=== PATIENT | female | born 1955 | race Hispanic/Latino ===

== ENCOUNTER → 2023-12-30 | Outpatient (CLI) | payer OTHER ==
[~2023-12-30] MED LIST: ASPI-556 PO; FURO20TA6 PO; IOHEXOL 350 MG/ML 100ML INFUS..BTL IV ONE; TRAM50TA4 PO
== END | disposition home or self-care (01) ==
LOC: RAH 13:31
PROVIDERS: ATTEND Internal Medicine Cardiovascular Disease
DX: R01.1 Cardiac murmur, unspecified (principal); I42.9 Cardiomyopathy, unspecified; R07.89 Other chest pain
CPT/HCPCS: 75574; Q9967

== ENCOUNTER → 2024-03-03 | Outpatient (CLI) | payer OTHER ==
[~2024-03-03] MED LIST changes: -IOHEXOL 350 MG/ML 100ML INFUS..BTL IV ONE
== END | disposition home or self-care (01) ==
LOC: SHCH 12:36
PROVIDERS: ATTEND Internal Medicine Cardiovascular Disease
DX: I10 Essential (primary) hypertension (principal)
CPT/HCPCS: 93306

== ENCOUNTER 2024-03-27 08:14 | Day surgery (SDC) | payer OTHER ==
[2024-03-23 11:43] LABS: BASOPHILS # (AUTO) 0.04 K/uL (0.00-0.20); BASOPHILS % (AUTO) 0.7 % (0.0-5.0); EOSINOPHILS # (AUTO) 0.12 K/uL (0.00-0.70); EOSINOPHILS % (AUTO) 2.2 % (0.0-8.0); HEMATOCRIT 35.6 % (36-48); IMMATURE GRANULOCYTE ABSOLUTE 0.01 K/uL (0-1); LYMPHOCYTES % (AUTO) 36.8 % (21.0-51.0); MEAN CORPUSCULAR HEMOGLOBIN 31.3 pg (27.0-33.0); MEAN CORPUSCULAR HGB CONC 33.1 g/dL (32.0-36.0); MEAN CORPUSCULAR VOLUME 94.4 fL (79-99); MONOCYTES # (AUTO) 0.4 K/uL (0.1-1.0); NEUTROPHILS # (AUTO) 2.8 K/uL (1.8-7.7); NEUTROPHILS % (AUTO) 52.1 % (40.0-77.0); PLATELET COUNT (AUTO) 151 K/uL (130-400); RED BLOOD CELL COUNT(AUTO) 3.77 MIL/uL (4.00-5.50); RED CELL DISTRIBUTION WIDTH 13.4 % (11.0-15.5); WHITE BLOOD COUNT (AUTO) 5.4 K/uL (4.8-10.8)
[2024-03-23 11:48] LABS: CREATININE 1.1 mg/dL (0.5-1.0); POTASSIUM 4.1 mmol/L (3.5-5.1)
[2024-03-23 12:33] VITALS: BP 103/52; PULSE 68; RESP 17; TEMP 97.4
[2024-03-27] VITALS (19 sets, daily range): BP systolic 98–157; BP diastolic 50–87; PULSE 59–68; RESP 14–22; TEMP 97.6–97.9
[~2024-03-27] VITALS: Ht 149.9 cm; Wt 57.7 kg
[~2024-03-27 08:14] MED LIST changes: +ESOM40CA66 PO; +HYDR200T75 PO; +ISOS30TA92 PO; +LOSA50TA64 PO; -TRAM50TA4 PO
[2024-03-27] MEDS: 0.9%NACL 1000ML 1,000 ML IV SCH (08:43)
[2024-03-27] MEDS: LIDOCAINE HCL 2% VISCOUS 15 ML UDCUP PO ONE (09:31)
[2024-03-27] MEDS: FENTanyl CITRate PF 50 MCG/1 ML 2ML VIAL IVP ONE (11:05)
[2024-03-27] MEDS: MIDAZOLAM HCL 1 MG/ML 2ML VIAL IVP ONE (11:06)
== END 2024-03-27 12:17 | disposition home or self-care (01) ==
LOC: DAH 08:14
PROVIDERS: ATTEND Internal Medicine Cardiovascular Disease
DX: I34.0 Nonrheumatic mitral (valve) insufficiency (principal); I35.0 Nonrheumatic aortic (valve) stenosis; I34.2 Nonrheumatic mitral (valve) stenosis; I12.9 Hypertensive chronic kidney disease with stage 1 through stage 4 chronic kidney disease, or unspecified chronic kidney disease; N18.30 Chronic kidney disease, stage 3 unspecified; M35.00 Sjogren syndrome, unspecified; R06.09 Other forms of dyspnea; R07.9 Chest pain, unspecified; K21.9 Gastro-esophageal reflux disease without esophagitis; I45.10 Unspecified right bundle-branch block; Z79.82 Long term (current) use of aspirin; Z79.899 Other long term (current) drug therapy
CPT/HCPCS: 80048; 85025; 36415; 93005; 93325; 93312; J3010; J7030; J2250; A4615; A4215; A4223 ×3; A7002; A4222; A4221; A4663; A4216; A4606; 99152; 99153; G0500

== ENCOUNTER 2024-04-19 07:16 | Day surgery (SDC) | payer OTHER ==
[2024-04-17 13:06] VITALS: BP 117/58; PULSE 70; RESP 16; TEMP 98
[~2024-04-19] VITALS: Ht 149.9 cm; Wt 56.9 kg
[2024-04-19] VITALS (10 sets, daily range): BP systolic 104–160; BP diastolic 56–79; PULSE 62–69; RESP 14–19; TEMP 97.9–208.2
[~2024-04-19 07:16] MED LIST changes: +FURO20TA4 PO; -FURO20TA6 PO
[2024-04-19] MEDS ORDERED: 0.9%NACL 1000ML 1,000 ML IV SCH ×2 (08:30→12:30)
[2024-04-19] MEDS ORDERED: IOHEXOL 350 MG/ML 100ML INFUS..BTL IV ONE (10:36)
[2024-04-19] MEDS ORDERED: LIDOCAINE HCL 400MG/20ML VIAL ONE (10:36)
[2024-04-19] MEDS ORDERED: HEParin-NS 1,000 UNIT/500 ML 1,000 ML IV ONE (10:36)
[2024-04-19] MEDS ORDERED: NITROGLYCERIN 50MG VIAL ONE (10:36)
[2024-04-19] MEDS ORDERED: FENTanyl CITRate PF 50 MCG/1 ML 2ML VIAL ONE (10:58)
[2024-04-19] MEDS ORDERED: MIDAZOLAM HCL 1 MG/ML 2ML VIAL ONE (10:58)
[2024-04-19] MEDS ORDERED: HEParin 10,000 UNIT/10ML (1,000 UNIT/ML) VIAL ONE (10:59)
[2024-04-19] MEDS ORDERED: BIVALIRUDIN 250 MG/VIAL IV ONE (10:59)
[2024-04-19] MEDS ORDERED: HEParin-NS 1,000 UNIT/500 ML 500 ML IV ONE (12:07)
[2024-04-19] MEDS: PoTASSium chloRIDE 20MEQ ER 20 MEQ ERTAB PO ONE (14:22)
== END 2024-04-19 16:21 | disposition home or self-care (01) ==
LOC: DAH 07:16
PROVIDERS: ATTEND Internal Medicine Cardiovascular Disease
DX: I35.0 Nonrheumatic aortic (valve) stenosis (principal); I25.118 Atherosclerotic heart disease of native coronary artery with other forms of angina pectoris; R06.09 Other forms of dyspnea; M35.00 Sjogren syndrome, unspecified; I34.0 Nonrheumatic mitral (valve) insufficiency; I12.9 Hypertensive chronic kidney disease with stage 1 through stage 4 chronic kidney disease, or unspecified chronic kidney disease; N18.30 Chronic kidney disease, stage 3 unspecified; K21.9 Gastro-esophageal reflux disease without esophagitis; Z79.01 Long term (current) use of anticoagulants; Z79.82 Long term (current) use of aspirin; Z79.899 Other long term (current) drug therapy
CPT/HCPCS: 80048; 83880; 85025; 85610; 85730; 36415; 71045; 93005; 93456; C1894 ×3; C1760; J3010; J3490 ×2; J2250; J1644 ×2; Q9967; A4215 ×2; A4335; A4222; A4221; A4663; A4216; A4606; Q9965 ×2; A4223 ×3; A4554; 99156; 99157; J0583

== ENCOUNTER 2025-02-02 08:10 | Day surgery (SDC) | payer OTHER ==
[~2025-02-02] VITALS: Ht 149.9 cm; Wt 58.5 kg
[2025-02-02] VITALS (12 sets, daily range): BP systolic 92–147; BP diastolic 52–81; PULSE 63–69; RESP 17–18; TEMP 97.3–97.6
[~2025-02-02 08:10] MED LIST changes: -ESOM40CA66 PO; -HYDR200T75 PO; +PILO5TAB10 PO; +POTA20PA32 PO
[2025-02-02 09:10] LABS: IMMATURE GRANULOCYTE ABSOLUTE 0.02 K/uL (0-1); NUCLEATED RED BLOOD CELLS 0.0 % (0.0-0.19); PLATELET COUNT (AUTO) 146 K/uL (130-400); RED BLOOD CELL COUNT(AUTO) 3.63 MIL/uL (4.00-5.50); RED CELL DISTRIBUTION WIDTH 15.0 % (11.0-15.5); WHITE BLOOD COUNT (AUTO) 4.4 K/uL (4.8-10.8)
[2025-02-02 09:15] LABS: APPEARANCE,URINE CLEAR (CLEAR); GLUCOSE, URINE (UA) NEGATIVE (NEGATIVE); LEUKOCYTE ESTERASE ,URINE 75 Leu/uL (NEGATIVE); NITRATE,URINE NEGATIVE (NEGATIVE); OCCULT BLOOD,URINE NEGATIVE (NEGATIVE)
[2025-02-02 09:17] LABS: CREATININE 0.7 mg/dL (0.5-1.0); GLOMERULAR FILTR. RATE CALC 94.0 mL/min (>90); GLUCOSE,RANDOM 87.0 mg/dL (70-105); SODIUM SERUM 143.0 mmol/L (136-145); UREA NITROGEN, BLOOD 15.0 mg/dL (7-18)
[2025-02-02 09:20] LABS: INR 1.05 (0.85-1.15)
[2025-02-02 09:29] LABS: ADD UA MICROSCOPIC YES
[2025-02-02] MEDS: 0.9%NACL 1000ML 1,000 ML IV SCH (09:55)
--- NOTE | 2025-02-02 11:46 | EKG ---
Test Date: 2025-02-02 Test Time: 08:55:16 Pat Name: STEPHEN SÁNCHEZ Department: [facility] Room: Gender: F Vat Tender: [id number] : 1955 Requested By: Madison SERRANO Order Number: [id number] Reading MD: Neto Stearns Measurements Intervals [place] Rate: 54 P: 66 CA: 138 QRS: 68 QRSD: 137 T: 173 QT: 492 QTc: 468 Interpretive Statements Sinus rhythm IVCD, consider RBBB LVH with secondary repolarization abnormality Compared to ECG 10/23/2024 12:08:50 Left ventricular hypertrophy now present Early repolarization now present T-wave abnormality no longer present Possible ischemia no longer present Myocardial infarct finding no longer present Electronically Signed On 02-04-2025 10:53:01 CDT by Neto Stearns Please click the below link to view image of tracing.
[2025-02-02] MEDS ORDERED: LIDOCAINE HCL 400MG/20ML VIAL ONE (12:51)
[2025-02-02] MEDS ORDERED: SODIUM BICARB 50MEQ 50ML VIAL 50 ML ONE (12:51)
[2025-02-02] MEDS ORDERED: NITROGLYCERIN 50MG VIAL ONE (12:52)
[2025-02-02] MEDS ORDERED: HEParin-NS 1,000 UNIT/500 ML 1,000 ML IV ONE (12:52)
[2025-02-02] MEDS ORDERED: IOHEXOL 350 MG/ML 100ML INFUS..BTL IV ONE (12:52)
[2025-02-02] MEDS ORDERED: MIDAZOLAM HCL 1 MG/ML 2ML VIAL ONE ×2 (13:23→13:33)
[2025-02-02] MEDS ORDERED: IOHEXOL-350 50ML VIAL IV ONE (14:35)
--- NOTE | 2025-02-02 18:04 | PR ---
PROCEDURES: * Left heart catheterization. * Selective diagnostic left coronary arteriography. * Balloon angioplasty and stent of the obtuse marginal branch of the circumflex x 2. * Balloon angioplasty of the ongoing circumflex, POBA with drug-coated balloon. * Conscious sedation for 90 minutes. INDICATIONS: * Severe symptomatic aortic stenosis. * Severe coronary artery disease. COMPLICATIONS: None. TOTAL CONTRAST: 95 mL. DESCRIPTION OF PROCEDURE: The patient was taken to the cardiac cath laboratory technician after appropriate operative consents were signed. She was prepped and draped in the usual fashion. After conscious sedation was administered, the right common femoral artery region was infiltrated with 2% Xylocaine without epinephrine. Ultrasound guidance was utilized to access the right common femoral artery. Imaging was then obtained by advancement of FL4 6-Nepali guide catheter that was advanced and selectively engaged in the ostium of the left main. The patient had a recent cardiac catheterization that documented nonobstructive RCA stenosis and nonobstructive LAD stenosis with critical disease in the circumflex and the OM. The intent of this procedure was to assess the gradient across the aortic valve and address the lesions of the circumflex and OM, suggestion for TAVR. Imaging of the left coronary artery revealed a short left main, which was free of disease. The left main bifurcated LAD and circumflex. The LAD was subselectively imaged and was patent. The circ was a large vessel that was dominant, gave rise to a very large obtuse marginal 1 and an ongoing circ. The obtuse marginal 1 had a 95% stenotic lesion in the main body. The ongoing circ had a 95% lesion just distal to where the obtuse marginal takes off. At this point, we elected to proceed with placement of a stent in the circumflex. A 0.014 wire was advanced after full heparinization was positioned in the distal OM. We then placed a 3.5 x 23 drug-eluting stent, which was inflated to 14 atmospheres at 3.63 mm size with good angiographic results. We then elected to proceed with balloon angioplasty of the ongoing circumflex and we placed a 0.014 wire in the distal circ circulation and we maintained the wire in the OM. We proceeded with placement of a 3.0 x 15 drug-coated balloon, which gave us suboptimal results. We then postdilated with a 3.5 x 16 NC balloon to 12 atmospheres with improvement in the findings. At this point, we noted that the area of the circumflex balloon angioplasty resulted in some plaque shift in the main body of the circumflex and OM. We elected to proceed with a second stent at 3.5 x 15, which was placed traversing the origin of the ongoing circ and placed in the OM back to the circumflex. This was deployed to normal pressures with good angiographic results; however, additional plaque shifting was noted into the ongoing circ with critical stenosis in the area just adjacent to where the stent had been deployed. We then advanced a second 0.014 wire and crossed into the distal circ circulation through the struts of the stent. We placed a 3.0 x 15 NC balloon, which was dilated across the ostium of that ongoing circ and inflated to 16 atmospheres with adequate final angiographic results. At this point, the procedure was completed for PTCA and stenting. We elected to cross the aortic valve to assess the degree of stenosis. At this point, we were able to utilize a left Amplatz one with a straight wire that was crossed into the left ventricular cavity. This was then utilized to advance the Amplatz catheter and this was utilized to measure the left ventricular end diastolic pressure and the pressure in the systole and we pulled back the catheter and got a gradient of approximately 60 mm. At this point, the procedure was completed, Perclose was utilized with good hemostasis. The patient tolerated the procedure well and left the cardiac cath laboratory technician in stable condition. It is important to note that the angiography of the common femoral access site revealed adequate catheter placement. Distal to the common femoral access site, there was a definite area of stenosis, this may have been secondary to prior cardiac catheterization access. PLAN: Assess the patient in consideration for TAVR. TID: [id number] RECEIPT: [id number]
== END 2025-02-02 21:00 | disposition home or self-care (01) ==
LOC: DAH 08:10
PROVIDERS: ATTEND Internal Medicine Cardiovascular Disease
DX: I35.0 Nonrheumatic aortic (valve) stenosis (principal); I25.118 Atherosclerotic heart disease of native coronary artery with other forms of angina pectoris; I11.0 Hypertensive heart disease with heart failure; I50.32 Chronic diastolic (congestive) heart failure; M35.00 Sjogren syndrome, unspecified; Z79.82 Long term (current) use of aspirin; Z79.01 Long term (current) use of anticoagulants; Z79.899 Other long term (current) drug therapy
CPT/HCPCS: 80048; 83880; 85347; 85025; 85610; 85730; 87086 ×2; 87186; 81001; 36415; 93458; 93005; 99156; 99157 ×5; C9600; C1769 ×3; C1887; C1894 ×2; C1725 ×2; C1760; C1874 ×2; J3010; J3490 ×3; J1644 ×2; J2250 ×2; Q9967 ×2; A4215; A4222; A4221; A4663; A4216; A4606; C9601; Q9965; A4223 ×3